=== PATIENT | female | born 1965 | race Caucasian/White ===

== ENCOUNTER → 2024-03-14 | Outpatient (CLI) | payer MEDICAID ==
[2024-03-14 09:53] LABS: BASOPHILS # (AUTO) 0.1 X10'3 (0-0.2); EOSINOPHILS # (AUTO) 0.2 X10'3 (0-0.9); EOSINOPHILS % (AUTO) 2.5 % (0-6); HEMOGLOBIN 11.9 g/dl (12.0-16.0); LYMPHOCYTES # (AUTO) 2.3 X10'3 (1.1-4.8); LYMPHOCYTES % (AUTO) 34.1 % (21-51); MEAN CORPUSCULAR HEMOGLOBIN 20.2 PG (27.0-31.0); MEAN CORPUSCULAR HGB CONC 31.3 g/dL (33.0-36.5); MEAN CORPUSCULAR VOLUME 64.4 FL (78-98); MEAN PLATELET VOLUME 8.7 FL (7.4-10.4); MONOCYTES # (AUTO) 0.6 X10'3 (0-0.9); MONOCYTES % (AUTO) 9.7 % (2-12); NEUTROPHILS # (AUTO) 3.5 X10'3 (1.8-7.7); NEUTROPHILS % (AUTO) 52.7 % (42-75); PLATELET COUNT 245 X10'3 (140-440); RED CELL DISTRIBUTION WIDTH 16.4 % (11.5-14.5); WHITE BLOOD COUNT 6.6 X10'3 (4.5-11.0)
[2024-03-14 10:08] LABS: ALANINE AMINOTRANSFERASE 53 U/L (12-78); ALBUMIN 4.1 G/DL (3.4-5.0); ALBUMIN/GLOBULIN RATIO 1.2 (1.1-1.5); ALKALINE PHOSPHATASE 74 IU/L (46-116); ANION GAP 10 (8-16); ASPARTATE AMINO TRANSFERASE 24 U/L (10-37); BILIRUBIN,TOTAL 0.9 MG/DL (0.1-1.0); BLOOD UREA NITROGEN 11 MG/DL (7-18); CALCIUM 8.7 MG/DL (8.5-10.1); CHLORIDE 105 MMOL/L (99-107); CREATININE 0.92 MG/DL (0.40-0.90); GLUCOSE 108 MG/DL (70-104); POTASSIUM 4.1 MMOL/L (3.5-5.1); SODIUM 141 MMOL/L (135-145); TOTAL CARBON DIOXIDE 25.9 MMOL/L (24-32); TOTAL PROTEIN 7.6 G/DL (6.4-8.2); eGFR 63 ML/MIN
[2024-03-14 10:21] LABS: FREE T4 (FREE THYROXINE) 0.83 NG/DL (0.73-1.40); THYROID STIMULATING HORMONE 3.79 ulU/ml (0.34-4.50)
[2024-03-14 10:37] LABS: LARGE PLATELETS FEW; PLATELET ESTIMATE NORMAL
[2024-03-14 10:41] LABS: ANISOCYTOSIS 1+; HYPOCHROMASIA 2+; MICROCYTOSIS 2+; POLYCHROMASIA 1+
[2024-03-14 10:42] LABS: ELLIPTOCYTES 1+; SCHISTOCYTES FEW; TEAR DROP CELLS 1+
== END | disposition home or self-care (01) ==
LOC: RAD 09:21
PROVIDERS: ATTEND Registered Nurse
DX: E78.2 Mixed hyperlipidemia (principal); F33.3 Major depressive disorder, recurrent, severe with psychotic symptoms; F41.8 Other specified anxiety disorders; F43.12 Post-traumatic stress disorder, chronic; I10 Essential (primary) hypertension
CPT/HCPCS: 36415; 80053; 82306; 83036; 84439; 84443; 85008; 85025